=== PATIENT | female | born 1995 | race Caucasian/White ===

== ENCOUNTER 2020-09-03 11:58 | Emergency (ER) | payer SELFPAY ==
[~2020-09-03] VITALS: Ht 152.4 cm; Wt 71.2 kg
[2020-09-03 12:00] VITALS: BP 127/73
--- NOTE | 2020-09-03 12:42 | NUR ---
24/F presents to ED with c/o abdominal cramping and vaginal bleeding. Patient states she has had light vaginal bleeding "when wiping" stating she is also having intermittent 3/10 abdominal cramping. Patient states she was told at a clinic that she is 8 weeks , patient is G1. Patient denies nausea, vomiting, chest pain or shortness of breath, denies dysuria.
[2020-09-03 12:59] LABS: APPEARANCE,URINE HAZY (CLEAR); BILIRUBIN,URINE NEGATIVE (NEGATIVE); BLOOD, URINE 3+ (NEGATIVE); COLOR,URINE YELLOW (YELLOW); LEUKOCYTE ESTERASE ,URINE NEGATIVE (NEGATIVE); NITRITE, URINE NEGATIVE (NEGATIVE); UGLUCOSE NEGATIVE (NEGATIVE)
[2020-09-03 13:04] LABS: RBC,URINE 11-20 (MOD) /HPF (0-5)
--- NOTE | 2020-09-03 13:05 | NUR ---
Ultrasound at bedside
[2020-09-03 13:09] LABS: BASOPHILS % (AUTO) 0.5 % (0.0-2.0); EOSINOPHILS # (AUTO) 0.2 K/uL (0-0.4); EOSINOPHILS % (AUTO) 2.4 % (0.0-4.0); HEMATOCRIT 34.6 % (36-48); HEMOGLOBIN 11.9 g/dL (12.0-16.0); LYMPHOCYTES # (AUTO) 2.5 K/uL (2.5-16.5); LYMPHOCYTES % (AUTO) 29.7 % (20.5-51.1); MEAN CORPUSCULAR HEMOGLOBIN 30 pg (27-31); MEAN CORPUSCULAR HGB CONC 35 g/dL (33-37); MEAN CORPUSCULAR VOLUME 86.1 fL (80-94); MONOCYTES # (AUTO) 0.6 K/uL (0.8-1.0); MONOCYTES % (AUTO) 7.7 % (1.7-9.3); NEUTROPHILS # (AUTO) 4.9 K/uL (1.8-7.7); NEUTROPHILS % (AUTO) 59.7 % (42.2-75.2); PLATELET COUNT (AUTO) 347 K/uL (140-450); RED BLOOD CELL COUNT(AUTO) 4.02 MIL/uL (4.20-5.40); RED CELL DISTRIBUTION WIDTH 13.3 % (11.6-13.7); WHITE BLOOD COUNT (AUTO) 8.3 K/uL (4.8-10.8)
--- NOTE | 2020-09-03 14:30 | NUR ---
Patient discharged with v/s stable. Written and verbal after care instructions given and explained. Patient verbalized understanding. Ambulatory with steady gait. All questions addressed prior to discharge. Advised to follow up with PMD.
[2020-09-03 14:34] VITALS: BP 114/64
== END 2020-09-03 14:30 | disposition home or self-care (01) ==
LOC: MED 11:58
DX: O46.8X1 Other antepartum hemorrhage, first trimester (principal); O00.01 Abdominal pregnancy with intrauterine pregnancy; Z3A.08 8 weeks gestation of pregnancy
CPT/HCPCS: 36415; 76801; 81001; 81025; 84702; 85025; 86900; 86901; 87086; 99284